=== PATIENT | male | born 1950 | race Caucasian/White ===

== ENCOUNTER 2016-06-02 19:48 | Inpatient (IN) ==
[2016-06-02 21:01] LABS: Basophils % 0.2 % (0.0-0.8); Eosinophils # 0.2 10*3/uL (0.0-0.87); Eosinophils % 1.7 % (0.00-10.9); Hemoglobin 12.2 GM/DL (14.0-18.0); Immature Granulocytes % 0.6 %; Immature Granulocytes Absolute 0.06 #; Lymphocytes # 1.9 10*3/uL (1.4-4.0); Lymphocytes % 20.4 % (21.2-54.2); Mean Corpuscular Hemoglobin 30 PG (27-34); Mean Corpuscular Volume 89.4 FL (87-102); Mean Platelet Volume 9.4 FL (9.6-12.0); Monocytes # 1.3 10*3/uL (0.11-0.8); Monocytes % 13.5 % (1.7-12.7); Neutrophils % 63.6 % (38.7-73.9); Platelet Count 183 T/CUMM (130-400); Red Blood Count 4.14 MC/CUMM (3.8-5.5); Red Cell Distribution Width 12.7 % (9.3-17.3); White Blood Count 9.5 T/CUMM (4-12)
[2016-06-02 21:30] LABS: Calcium 8.3 MG/DL (8.5-10.1); Osmolality,Calculated 278.8 MOS/KG (273-304); Potassium 3.7 MMOL/L (3.5-5.1)
--- NOTE | 2016-06-02 22:21 | Emergency Department Note ---
I, Pippa Woodson, am scribing for, and in the presence of, Leander Conteh MD 20:35. IWero Robert M, MD, personally performed the services described in this documentation, ascribed by Pippa Woodson in my presence, and it is both accurate and complete . Arrival - Arrival Chief Complaint: Extremity Problem Stated Complaint: staph infection knee,arm,groin ED Nursing Triage Note: C/O Infection in right knee/leg and right elbow. Onset on and off x 20 years worsening over the past week. Pt states that this infection comes and goes to right leg, but has never been in elbow. +redness/ swelling to RLE and right elbow Mode of Arrival: Wheelchair Limitations: No Limitations Source: Patient Time Seen by Provider: 06/02/16 20:25 - History of Present Illness HPI Narrative: Pt is a 66 y/o male that came to the ED with c/o infection in the right leg and right elbow that worsened in the last few days. Pt reports he also has bumps on his legs and groin area. Pt states he has had staff infection flare ups for the past 20 years and it normally is resolved with antibiotics. Pt states it is always a skin infection but he thinks it is affecting the bones and joints this time. Pt reports he woke up yesterday morning with his right elbow red, tender, and stiff and worsened this morning when he woke up. Pt reports the infection is normally in his right leg but never goes to his elbow like this time. Pt states he has had an US on the right knee in which no blood clots were found. He reports he also seen an technical developer and fire hose curer [place] and was told nothing could be done. Pt denies being on antibiotics at this time. He states he sent pictures of the infection to his friend's son who is a doctor and he suggested the pt needs IV antibiotics for a few days. Pt has a Hx of stroke that affected his left side but he is not paralyzed. Pt's PCP is Dr. Mccall and pt states he is a heart patient with an artificial valve. No other complaints/pain in ED at this time. Onset (ago): year(s) Consistency: intermittent Severity: moderate, severe Severity scale (1-10): 7 Quality: other Allergies/Adverse Reactions: Allergies Allergy/AdvReac Type Severity Reaction Status Date / Time morphine AdvReac ITCHING Verified 11/26/15 22:02 Home Medications: Home Medications Medication Instructions Recorded Confirmed Type Aspirin [Children's Aspirin] 81 mg PO DAILY 07/31/14 06/02/16 History Carvedilol [Coreg] 6.25 mg PO BID 07/31/14 06/02/16 History Celecoxib [Celebrex] 200 mg PO DAILY 07/31/14 06/02/16 History Furosemide Tab [Lasix Tab] 20 mg PO DAILY 07/31/14 06/02/16 History Lovastatin 40 mg PO BEDTIME 07/31/14 06/02/16 History Magnesium Chloride [Slow Mag] 64 mg PO DAILY 07/31/14 06/02/16 History Montelukast Tab [Singulair Tab] 10 mg PO BEDTIME 07/31/14 06/02/16 History Pantoprazole Sodium 20 mg PO DAILY 07/31/14 06/02/16 History Pramipexole Di-HCl [Mirapex ER] 0.375 mg PO BEDTIME 07/31/14 06/02/16 History Tamsulosin [Flomax] 0.4 mg PO DAILY 07/31/14 06/02/16 History Tizanidine HCl [Zanaflex] 4 mg PO BEDTIME 07/31/14 06/02/16 History clonazePAM [Clonazepam] 0.5 mg PO BID 07/31/14 06/02/16 History Duloxetine HCl [Cymbalta] 60 mg PO DAILY 03/11/15 06/02/16 History HYDROcodone/ACETAMIN 10-325 [[place] 1 tablet PO Q4H PRN 03/11/15 06/02/16 History 10-325] Niacin [Slo-Niacin] 500 mg PO DAILY 11/27/15 06/02/16 History Lisinopril [Lisinopril] 2.5 mg PO DAILY 03/03/16 06/02/16 History Biotin/Keratin [Biotin Plus 1 each PO DAILY 06/02/16 06/02/16 History Keratin Tablet] Magnesium Oxide [Magnesium] 400 mg PO DAILY 06/02/16 06/02/16 History Multivit-Min/FA/Lycopene/Lut 1 each PO DAILY 06/02/16 06/02/16 History [Centrum Silver Tablet] Nitroglycerin Sl Tab [Nitrostat] 0.4 mg SL Q5M PRN 06/02/16 06/02/16 History [place]-3 Fatty Acids [Fish Oil] 300 mg PO DAILY 06/02/16 06/02/16 History Warfarin Sodium 3 mg PO MOWEFRSA 06/02/16 06/02/16 History Warfarin Sodium 5 mg PO MOWEFRSA 06/02/16 06/02/16 History Warfarin [Coumadin] 5 mg PO SUTUTH 06/02/16 06/02/16 History Review of System - Review of System 12 point system: reviewed and no additional remarkable complaints except as stated - Review of System Constitutional: Absent: chills, fever Cardiovascular: Absent: chest pain Gastrointestinal: Absent: abdominal pain Musculoskeletal: Present: arm pain (right elbow pain that is red, tender, and stiff), leg pain (right leg pain). Absent: back pain, neck pain Skin: Present: rash (bumps on right leg and groin area) Neurological: Absent: headache Psychiatric: Absent: anxiety Medical,Surgical,& Family Hx - Medical History Cardio: History of: Hypertension, Pacemaker, Valvular Heart Disease (Mechanical Aortic valve) Psychological: History of: Depression, Previous Suicide Attempt (INTENTIONAL OD [address] ROA AT [place]), Psychiatric/Substance Abuse Tx, Psychiatric Problems No history of: Anxiety Disorders, ADHD, Behavior Problems, Bipolar Disorder, Schizophrenia, Violent Behavior Neurology: History of: Cerebrovascular Accident HEENT: History of: Eye Problem (NEAR SIGHTED) No history of: Ear Problem, Dental Problems, Glaucoma, Oral Cancer Respiratory: History of: Asthma, Obstructive Sleep Apnea Gastrointestinal: History of: GERD, GI Problems Musculoskeletal: History of: Back/Neck Problems (rods in back) Other: History of: Skin Problems (recurrent cellulitis of the extremities), Miscellaneous Medical Problems (Sleep Apnea) - Surgical History Cardiac Surgeries: Sugical HX of: Cardiac Catheterization (stents x 2, dr jackson), Cardiac Surgery Thoracic Surgeries: Patient denies;: Organ Transplant Abdominal Surgeries: Surgical HX of: Abdominal Surgery (COLECTOMY), Appendectomy , Colonoscopy, EGD Patient denies: Cholecystectomy, Gastric Bypass Surgery, Hernia Repair Orthopedic Surgeries: Surgical HX of;: Orthopedic Surgery (MICOSCOPIC R KNEE SURG,3 FUSED DISC,RODS IN BACK) - Family History Family History: Reports;: Family Cancer (MOM(LIVER)), Family Diabetes (COUSIN), Family Psychiatric Problems (MOM,MAT GF), Family Stroke (MOM) Denies;: Family Anesthesia Reaction, Family Heart Disease, Family Hypertension - Social History Smoking Status: Former smoker Frequency of Alcohol Use: Occasionally Type of Drug Use: None Exam Vital Signs: Vital Signs Temperature 98.1 F 06/02/16 19:50 Pulse Rate 78 06/02/16 20:00 Respiratory Rate 20 06/02/16 20:00 Blood Pressure 179/82 06/02/16 20:00 O2 Sat by Pulse Oximetry 100 06/02/16 20:00 - General General appearance: alert, in no apparent distress - Head Head exam: Present: atraumatic, normocephalic - Eye Eye exam: Present: PERRL, EOMI - ENT ENT exam: Present: mucous membranes moist. Absent: mucous membranes dry - Neck Neck exam: Present: full ROM. Absent: tenderness - Chest Chest inspection: Present: symmetric chest wall rise. Absent: tenderness - Respiratory Respiratory exam: Present: normal lung sounds bilaterally. Absent: respiratory distress - Cardiovascular Cardiovascular exam: Present: regular rate, normal rhythm, normal heart sounds - Abdominal Exam Abdominal exam: Present: soft. Absent: tenderness - Extremities Exam Extremities exam: Present: full ROM, other (right elbow is swollen and tender; scattered scabbing on the lower extremities; right medial thigh erythema and cording near the saphenous vein ) - Back Exam Back exam: Present: full ROM. Absent: tenderness - Neurological Exam Neurological exam: Present: alert, oriented X3, CN II-XII intact. Absent: motor sensory deficit - Psychiatric Psychiatric exam: Present: normal affect, normal mood - Skin Skin exam: Present: warm, dry Course - Consultations Consultation #1: Dr. Mainor Chu will evaluate and admit the patient. Time: 22:21 Results - Labs CBC & BMP: 06/02/16 20:40 06/02/16 20:40 Lab Results: I have reviewed the patients labs Labs: Lab Results WBC 9.5 T/CUMM (4-12) 06/02/16 20:40 RBC 4.14 MC/CUMM (3.8-5.5) 06/02/16 20:40 Hgb 12.2 GM/DL (14.0-18.0) L 06/02/16 20:40 Hct 37.0 VOL% (42.0-52.0) L 06/02/16 20:40 MCV 89.4 FL (87-102) 06/02/16 20:40 MCH 30 PG (27-34) 06/02/16 20:40 MCHC 33.0 GM/DL (32-36) 06/02/16 20:40 RDW 12.7 % (9.3-17.3) 06/02/16 20:40 Plt Count 183 T/CUMM (130-400) 06/02/16 20:40 MPV 9.4 FL (9.6-12.0) L 06/02/16 20:40 Neut % (Auto) 63.6 % (38.7-73.9) 06/02/16 20:40 Lymph % (Auto) 20.4 % (21.2-54.2) L 06/02/16 20:40 [place] % (Auto) 13.5 % (1.7-12.7) H 06/02/16 20:40 Eos % (Auto) 1.7 % (0.00-10.9) 06/02/16 20:40 Baso % (Auto) 0.2 % (0.0-0.8) 06/02/16 20:40 Neut # (Auto) 6.0 10*3/uL (1.4-7.4) 06/02/16 20:40 Lymph # (Auto) 1.9 10*3/uL (1.4-4.0) 06/02/16 20:40 [place] # (Auto) 1.3 10*3/uL (0.11-0.8) H 06/02/16 20:40 Eos # (Auto) 0.2 10*3/uL (0.0-0.87) 06/02/16 20:40 Baso # (Auto) 0.0 10*3/uL (0.0-0.2) 06/02/16 20:40 Immature Gran % 0.6 % 06/02/16 20:40 Nucleated RBC % 0.0 /100WBC 06/02/16 20:40 Immature Gran # 0.06 # 06/02/16 20:40 Nucleated RBCs # 0.00 10*3/uL 06/02/16 20:40 Sodium 137 MMOL/L (136-145) 06/02/16 20:40 Potassium 3.7 MMOL/L (3.5-5.1) 06/02/16 20:40 Chloride 103 MMOL/L (98-107) 06/02/16 20:40 Carbon Dioxide 26 MMOL/L (21-32) 06/02/16 20:40 Anion Gap 11.7 MMOL/L (5.0-15.0) 06/02/16 20:40 BUN 18 MG/DL (7-18) 06/02/16 20:40 Creatinine 0.90 MG/DL (0.70-1.30) 06/02/16 20:40 GFR Calculation 129 ML/MIN 06/02/16 20:40 BUN/Creatinine Ratio 20.00 RATIO (6.00-20.00) 06/02/16 20:40 Glucose 169 MG/DL (74-106) H 06/02/16 20:40 Calculated Osmolality 278.8 MOS/KG (273-304) 06/02/16 20:40 Calcium 8.3 MG/DL (8.5-10.1) L 06/02/16 20:40 Magnesium 2.0 MG/DL (1.8-2.4) 06/02/16 20:40 C-Reactive Protein 4.29 MG/DL (0-0.32) H 06/02/16 20:40 Disposition Clinical Impression: Superficial thrombophlebitis, Cellulitis of right elbow, Pacemaker Case discussed with: patient, patient's family Disposition: Disch To Home/Self Care Condition: Stable Instructions: Cellulitis (ED) Time of Disposition: 22:21
[2016-06-02] MEDS ORDERED: NITROGLYCERIN SL 0.4 MG TABLET SL PRN (23:31)
[2016-06-02] MEDS ORDERED: BISACODYL 5 MG TABLET PO PRN (23:33)
[2016-06-02] MEDS ORDERED: ACETAMINOPHEN 325 MG TABLET PO PRN (23:33)
--- NOTE | 2016-06-02 23:40 | Hospitalist History & Physical ---
Assessment and Plan (1) Cellulitis of right lower extremity Status: Acute Current Visit: Yes (2) Cellulitis of right elbow Status: Acute Current Visit: Yes (3) History of mechanical aortic valve replacement Status: Acute Current Visit: Yes (4) Chronic anticoagulation Status: Acute Assessment and plan: Plan: Admit for IV antibiotics, check blood cultures. Over the evaluation of the right elbow. Obtain plain films He has had fever at home up to 101, however none here. If he does have recurrence of fever, and/or positive blood culture may consider echo to assess his mechanical valve. Continue check PT/INR, continue anti-coagulation as appropriate Supportive care for pain Current Visit: Yes History of Present Illness Chief complaint: Right lower extremity redness and pain, right elbow swelling and pain History of present illness: Mr. 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 The redness and pain are extending to the groin over the last several days. He reports a fever "on and off," over the weekend up to 101. Additionally he woke up yesterday and stated it looked like his right elbow had a "golf ball attached to it." He describes a swelling is very tender painful and warm. The swelling has decreased markedly however he still has significant pain on palpation and restricted range of motion with flexion and extension of the elbow. He rates it a 7 out of 10 at worst, relieved with pain medication. He denies nausea and vomiting, denies chest pain, shortness of breath. His symptoms are constant and progressively worsening. 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." Home Medications Medication Instructions Recorded Confirmed Type Aspirin [Children's Aspirin] 81 mg PO DAILY 07/31/14 06/02/16 History Carvedilol [Coreg] 6.25 mg PO BID 07/31/14 06/02/16 History Celecoxib [Celebrex] 200 mg PO DAILY 07/31/14 06/02/16 History Furosemide Tab [Lasix Tab] 20 mg PO DAILY 07/31/14 06/02/16 History Lovastatin 40 mg PO BEDTIME 07/31/14 06/02/16 History Magnesium Chloride [Slow Mag] 64 mg PO DAILY 07/31/14 06/02/16 History Montelukast Tab [Singulair Tab] 10 mg PO BEDTIME 07/31/14 06/02/16 History Pantoprazole Sodium 20 mg PO DAILY 07/31/14 06/02/16 History Pramipexole Di-HCl [Mirapex ER] 0.375 mg PO BEDTIME 07/31/14 06/02/16 History Tamsulosin [Flomax] 0.4 mg PO DAILY 07/31/14 06/02/16 History Tizanidine HCl [Zanaflex] 4 mg PO BEDTIME 07/31/14 06/02/16 History clonazePAM [Clonazepam] 0.5 mg PO BID 07/31/14 06/03/16 History Duloxetine HCl [Cymbalta] 60 mg PO DAILY 03/11/15 06/02/16 History HYDROcodone/ACETAMIN 10-325 [[place] 1 tablet PO Q4H PRN 03/11/15 06/02/16 History 10-325] Niacin [Slo-Niacin] 500 mg PO DAILY 11/27/15 06/02/16 History Lisinopril [Lisinopril] 2.5 mg PO DAILY 03/03/16 06/02/16 History Biotin/Keratin [Biotin Plus 1 each PO DAILY 06/02/16 06/02/16 History Keratin Tablet] Magnesium Oxide [Magnesium] 400 mg PO DAILY 06/02/16 06/02/16 History Multivit-Min/FA/Lycopene/Lut 1 each PO DAILY 06/02/16 06/02/16 History [Centrum Silver Tablet] Nitroglycerin Sl Tab [Nitrostat] 0.4 mg SL Q5M PRN 06/02/16 06/02/16 History [place]-3 Fatty Acids [Fish Oil] 300 mg PO DAILY 06/02/16 06/02/16 History Warfarin Sodium 3 mg PO MOWEFRSA 06/02/16 06/02/16 History Warfarin Sodium 5 mg PO MOWEFRSA 06/02/16 06/02/16 History Warfarin [Coumadin] 5 mg PO SUTUTH 06/02/16 06/02/16 History Allergies Allergy/AdvReac Type Severity Reaction Status Date / Time morphine AdvReac ITCHING Verified 11/26/15 22:02 Medical,Surgical,& Family Hx - Medical History Cardio: History of: Hypertension, Pacemaker, Valvular Heart Disease (Mechanical Aortic valve) Psychological: History of: Depression, Previous Suicide Attempt (INTENTIONAL OD [address] ROA AT [place]), Psychiatric/Substance Abuse Tx, Psychiatric Problems No history of: Anxiety Disorders, ADHD, Behavior Problems, Bipolar Disorder, Schizophrenia, Violent Behavior Neurology: History of: Cerebrovascular Accident HEENT: History of: Eye Problem (NEAR SIGHTED) No history of: Ear Problem, Dental Problems, Glaucoma, Oral Cancer Respiratory: History of: Asthma, Obstructive Sleep Apnea Gastrointestinal: History of: GERD, GI Problems Musculoskeletal: History of: Back/Neck Problems (rods in back) Other: History of: Skin Problems (recurrent cellulitis of the extremities), Miscellaneous Medical Problems (Sleep Apnea) - Surgical History Cardiac Surgeries: Sugical HX of: Cardiac Catheterization (stents x 2, dr jackson), Cardiac Surgery Thoracic Surgeries: Patient denies;: Organ Transplant Abdominal Surgeries: Surgical HX of: Abdominal Surgery (COLECTOMY), Appendectomy , Colonoscopy, EGD Patient denies: Cholecystectomy, Gastric Bypass Surgery, Hernia Repair Orthopedic Surgeries: Surgical HX of;: Orthopedic Surgery (MICOSCOPIC R KNEE SURG,3 FUSED DISC,RODS IN BACK) - Family History Family History: Reports;: Family Cancer (MOM(LIVER)), Family Diabetes (COUSIN), Family Psychiatric Problems (MOM,MAT GF), Family Stroke (MOM) Denies;: Family Anesthesia Reaction, Family Heart Disease, Family Hypertension - Social History Smoking Status: Former smoker Frequency of Alcohol Use: Occasionally Type of Drug Use: None Marital Status: Unknown Functional capacity: independent ambulation Review of systems: A 12 point review of systems is negative except as specified in the HPI Exam - Constitutional Vitals: Period Temp Pulse Resp BP Sys/[place] Pulse Ox Last 24 Hr 98.1 F-98.1 F -81 18-20 118-136/- 97-100 Exam: EXAM: CONSTITUTIONAL: non toxic, NAD HEENT: NC, AT, OP benign, JL, EOMI CV: RRR no m/g/r, crisp S1 RESP: clear B/L, no w/r/r GI: abd soft, NT, ND, +bowel sounds INTEGUMENTARY: no lesions or rash EXTREMITIES: Left lower extremity with multiple excoriations in various stages of healing, right lower extremity with erythema and superficial phlebitis about the medial thigh, right upper extremity with erythema and tenderness in the elbow joint, no antecubital tenderness, + restricted range of motion with flexion and extension due to pain NEURO: no focal deficits PSYCH: Awake, alert, hyperverbal Results - Labs CBC & BMP: 06/02/16 20:40 06/02/16 20:40 Lab Results: I have reviewed the past 24 hour labs - Diagnostic Findings Procedure: X-ray: pending Quality Measures - VTE Contraindication to Pharmacological VTE Prophylaxis: Already on Theraputic Agent , No Prophylaxis Needed Contraindication to Mechanical VTE Prophylaxis: Local Inflammation
[2016-06-02] MEDS ORDERED: SODIUM CHLORIDE 0.9% 1,000 ML IV SCH (23:45)
[2016-06-03 01:15] LABS: INR 3.2
[2016-06-03 01:19] LABS: PT Patient Result 36.6 SECS
[2016-06-03] MEDS: WARFARIN 5 MG TABLET PO SCH ×2 (01:34→23:24)
[2016-06-03] MEDS: WARFARIN 3 MG TABLET PO SCH (01:37)
[2016-06-03] MEDS: CEFTAROLINE 600 MG in SODIUM CHLORIDE 0.9% 100 ML IV SCH ×3 (01:39→13:43)
[2016-06-03 04:48] LABS: Basophils % 0.3 % (0.0-0.8); Eosinophils # 0.2 10*3/uL (0.0-0.87); Eosinophils % 2.3 % (0.00-10.9); Hematocrit 36.8 VOL% (42.0-52.0); Hemoglobin 12.3 GM/DL (14.0-18.0); Immature Granulocytes Absolute 0.09 #; Lymphocytes # 1.7 10*3/uL (1.4-4.0); Mean Corpuscular HGB Conc 33.4 GM/DL (32-36); Mean Corpuscular Hemoglobin 30 PG (27-34); Mean Corpuscular Volume 89.3 FL (87-102); Monocytes # 1.2 10*3/uL (0.11-0.8); Monocytes % 13.1 % (1.7-12.7); Neutrophils # 5.7 10*3/uL (1.4-7.4); Neutrophils % 64.3 % (38.7-73.9); Platelet Count 181 T/CUMM (130-400); Red Blood Count 4.12 MC/CUMM (3.8-5.5); Red Cell Distribution Width 12.6 % (9.3-17.3); White Blood Count 8.8 T/CUMM (4-12)
[2016-06-03 04:59] LABS: INR 3.2
[2016-06-03 05:04] LABS: PT Patient Result 36.7 SECS
--- NOTE | 2016-06-03 07:08 | XRay Report ---
Right elbow, 3 views History right elbow pain and swelling There is a moderate proximal ulnar enthesophyte with mild overlying soft tissue swelling No acute fracture or periosteal reaction is seen No evidence of elbow joint effusion is seen. Impression: Posterior soft tissue swelling without acute fracture seen PROCEDURE INTERPRETED AT [facility] DEPARTMENT OF RADIOLOG[facility] Final Report Signed by: Dr. Taisha Horowitz
[2016-06-03] MEDS: HYDROmorphone 2 MG/1 ML VIAL IV PRN ×3 (08:00→22:29)
[2016-06-03] MEDS ORDERED: BIOTIN PO SCH (09:00)
[2016-06-03] MEDS ORDERED: KERATIN PO SCH (09:00)
[2016-06-03] MEDS: OMEGA 3 ACID ETHYL ESTERS 1 GM CAPSULE PO SCH (09:21)
[2016-06-03] MEDS: MAGNESIUM CHLORIDE 64 MG TABLET PO SCH (09:22)
[2016-06-03] MEDS: MAGNESIUM OXIDE 400 MG TABLET PO SCH (09:22)
[2016-06-03] MEDS: NIACIN 500 MG TABLET PO SCH (09:22)
[2016-06-03] MEDS: DULoxetine 30 MG CAPSULE PO SCH (09:23)
[2016-06-03] MEDS: MULTIVITAMIN (CENTRUM) TABLET PO SCH (09:24)
[2016-06-03] MEDS: FUROSEMIDE 20 MG TABLET PO SCH (09:24)
[2016-06-03] MEDS: ASPIRIN CHEW 81 MG TABLET PO SCH (09:24)
[2016-06-03] MEDS: PANTOPRAZOLE 20 MG TABLET PO SCH (09:24)
[2016-06-03] MEDS: LISINOPRIL 5 MG TABLET PO SCH (09:24)
[2016-06-03] MEDS: TAMSULOSIN 0.4 MG CAPSULE PO SCH (09:24)
[2016-06-03] MEDS: CARVEDILOL 6.25 MG TABLET PO SCH ×2 (09:24→21:56)
[2016-06-03] MEDS: clonazePAM 0.5 MG TABLET PO SCH ×2 (09:25→21:56)
[2016-06-03] MEDS ORDERED: LIDOCAINE 1% 20 ML VIAL MISC INJ ONE (11:09)
--- NOTE | 2016-06-03 11:31 | Orthopedic Consult Note ---
History of Present Illness Chief complaint: Right elbow pain History of present illness: Mr. Donovan is a 66 year old male with a recent history of redness and swelling in the right leg and right elbow. He states that it began "a couple days ago". The elbow was quite swollen and extremely sore, he states that it looked like a "golf ball" was attached to the elbow. He was admitted and started on IV antibiotics, he states since that time the pain and swelling have subsided considerably. He states that he does have a history of staph infections. Home Medications Medication Instructions Recorded Confirmed Type Aspirin [Children's Aspirin] 81 mg PO DAILY 07/31/14 06/03/16 History Carvedilol [Coreg] 6.25 mg PO BID 07/31/14 06/03/16 History Celecoxib [Celebrex] 200 mg PO DAILY 07/31/14 06/03/16 History Furosemide Tab [Lasix Tab] 20 mg PO DAILY 07/31/14 06/03/16 History Lovastatin 40 mg PO BEDTIME 07/31/14 06/03/16 History Magnesium Chloride [Slow Mag] 64 mg PO DAILY 07/31/14 06/03/16 History Montelukast Tab [Singulair Tab] 10 mg PO BEDTIME 07/31/14 06/03/16 History Pantoprazole Sodium 20 mg PO DAILY 07/31/14 06/03/16 History Pramipexole Di-HCl [Mirapex ER] 0.375 mg PO BEDTIME 07/31/14 06/03/16 History Tamsulosin [Flomax] 0.4 mg PO DAILY 07/31/14 06/03/16 History Tizanidine HCl [Zanaflex] 4 mg PO BEDTIME 07/31/14 06/03/16 History clonazePAM [Clonazepam] 0.5 mg PO BID 07/31/14 06/03/16 History Duloxetine HCl [Cymbalta] 60 mg PO DAILY 03/11/15 06/03/16 History HYDROcodone/ACETAMIN 10-325 [[place] 1 tablet PO Q4H PRN 03/11/15 06/03/16 History 10-325] Niacin [Slo-Niacin] 500 mg PO DAILY 11/27/15 06/03/16 History Lisinopril [Lisinopril] 2.5 mg PO DAILY 03/03/16 06/03/16 History Biotin/Keratin [Biotin Plus 1 each PO DAILY 06/02/16 06/03/16 History Keratin Tablet] Magnesium Oxide [Magnesium] 400 mg PO DAILY 06/02/16 06/03/16 History Multivit-Min/FA/Lycopene/Lut 1 each PO DAILY 06/02/16 06/03/16 History [Centrum Silver Tablet] Nitroglycerin Sl Tab [Nitrostat] 0.4 mg SL Q5M PRN 06/02/16 06/03/16 History [place]-3 Fatty Acids [Fish Oil] 300 mg PO DAILY 06/02/16 06/03/16 History Warfarin Sodium 3 mg PO MOWEFRSA 06/02/16 06/03/16 History Warfarin Sodium 5 mg PO MOWEFRSA 06/02/16 06/03/16 History Warfarin [Coumadin] 5 mg PO SUTUTH 06/02/16 06/03/16 History Allergies Allergy/AdvReac Type Severity Reaction Status Date / Time morphine AdvReac ITCHING Verified 11/26/15 22:02 - Constitutional Constitutional: Present: fever(s) Medical,Surgical,& Family Hx - Medical History Cardio: History of: Cardiac Dysrhythmia (Pacemaker), Hypertension, Pacemaker, Valvular Heart Disease (Mechanical Aortic valve) Psychological: History of: Depression, Previous Suicide Attempt (INTENTIONAL OD [address] ROA AT [place]), Psychiatric/Substance Abuse Tx, Psychiatric Problems No history of: Anxiety Disorders, ADHD, Behavior Problems, Bipolar Disorder, Schizophrenia, Violent Behavior Neurology: History of: Cerebrovascular Accident, Multiple Sclerosis HEENT: History of: Eye Problem (NEAR SIGHTED) No history of: Ear Problem, Dental Problems, Glaucoma, Oral Cancer Respiratory: History of: Asthma, Obstructive Sleep Apnea Gastrointestinal: History of: GERD, GI Problems Musculoskeletal: History of: Back/Neck Problems (rods in back), Herniated Disk Other: History of: Skin Problems (recurrent cellulitis of the extremities), Miscellaneous Medical Problems (Sleep Apnea) - Surgical History Cardiac Surgeries: Sugical HX of: Cardiac Catheterization (stents x 2, dr jackson), Cardiac Surgery Thoracic Surgeries: Patient denies;: Organ Transplant Abdominal Surgeries: Surgical HX of: Abdominal Surgery (COLECTOMY), Appendectomy , Colonoscopy, EGD Patient denies: Cholecystectomy, Gastric Bypass Surgery, Hernia Repair Reproductive Surgeries: Surgical HX of;: Vasectomy Patient denies;: Genitourinary Surgery Orthopedic Surgeries: Surgical HX of;: Orthopedic Surgery (MICOSCOPIC R KNEE SURG,3 FUSED DISC,RODS IN BACK) - Family History Family History: Reports;: Family Cancer (MOM(LIVER)), Family Diabetes (COUSIN), Family Psychiatric Problems (MOM,MAT GF), Family Stroke (MOM) Denies;: Family Anesthesia Reaction, Family Heart Disease, Family Hypertension - Social History Smoking Status: Former smoker Frequency of Alcohol Use: Occasionally Type of Drug Use: None Exam - Constitutional Vitals: Period Temp Pulse Resp BP Sys/[place] Pulse Ox Last 24 Hr 96.8 F-97.8 F 64-91 18-20 122-155/67-81 97-100 Exam: Right upper extremity: Very mild swelling and erythema in the right upper extremity. No skin lesions are noted. No areas of fluctuance are noted. He is exquisitely tender along his olecranon bursa, but there is minimal fluid noted there. No obvious signs of a significant olecranon bursitis at this point. Results - Labs CBC & BMP: 06/03/16 03:55 06/02/16 20:40 Assessment and Plan (1) Cellulitis of right elbow Status: Acute Assessment and plan: At this point it appears that the patient mostly has a cellulitis of the right upper extremity. If he did have a significant olecranon bursitis, it has responded remarkably well to IV antibiotics. We attempted to aspirate what little fluid was in the bursa, but got less than 1 cc of bloody fluid. We sent this to lab for evaluation. Recommend continue antibiotics We will follow-up exam and cultures tomorrow Procedure: under aseptic conditions, area over the right olecranon bursa was anesthetized 1 % lidocaine. Less than 1 cc of bloody fluid was then aspirated. Patient tolerated the procedure and there were no immediate complications. Current Visit: Yes Specialty Discharge - Follow Up or Referrals
--- NOTE | 2016-06-03 13:20 | Hospitalist Progress Note ---
Assessment and Plan (1) Cellulitis Status: Acute Current Visit: No (2) Cellulitis of right elbow Status: Acute Current Visit: Yes (3) Cellulitis of right lower extremity Status: Acute Current Visit: Yes (4) History of mechanical aortic valve replacement Status: Acute Current Visit: Yes (5) Chronic anticoagulation Status: Acute Current Visit: Yes Hospitalist: Subjective Interval history: Patient complaining of mostly right elbow pain. Reports that his cellulitis is unchanged from yesterday. Orthopedics able to aspirate a small amount of fluid from his elbow. F/u culture. Continue teflor. Exam - Constitutional Vitals: Period Temp Pulse Resp BP Sys/[place] Pulse Ox Last 24 Hr 96.8 F-97.8 F 64-91 18-20 122-155/67-85 95-100 General appearance: over weight - Head Head exam: Present: normocephalic, atraumatic - Eye Eye exam: Present: EOMI Pupils: Present: JL - ENT ENT exam: Present: normal exam - Neck Neck exam: Present: normal inspection - Respiratory Respiratory exam: Present: clear to auscultation bilaterally. Absent: rhonchi, wheezes - Cardiovascular Cardiovascular exam: Present: regular rate and rhythm - GI/Abdominal GI/Abdominal exam: Present: normal bowel sounds, soft - Extremities Exam Extremities exam: Present: normal inspection - Back Exam Back exam: Present: normal inspection - Neurological Exam Neurological exam: Present: alert, oriented X3 - Psychiatric Psychiatric exam: Present: normal affect, normal mood - Skin Skin exam: Present: warm, intact Results - Labs CBC & BMP: 06/03/16 03:55 06/02/16 20:40 Quality Measures - VTE Contraindication to Pharmacological VTE Prophylaxis: Already on Theraputic Agent , No Prophylaxis Needed Contraindication to Mechanical VTE Prophylaxis: Local Inflammation Specialty Discharge - Follow Up or Referrals
[2016-06-03] MEDS ORDERED: PRAMIPEXOLE DI HCL 0.375 MG PO SCH (21:00)
[2016-06-03] MEDS: tiZANidine 4 MG TABLET PO SCH (21:56)
[2016-06-03] MEDS: LOVASTATIN 20 MG TABLET PO SCH (21:56)
[2016-06-03] MEDS: MONTELUKAST 10 MG TABLET PO SCH (21:56)
[2016-06-04] MEDS: CEFTAROLINE 600 MG in SODIUM CHLORIDE 0.9% 100 ML IV SCH ×2 (01:17→13:31)
[2016-06-04] MEDS: HYDROmorphone 2 MG/1 ML VIAL IV PRN ×3 (03:42→13:30)
[2016-06-04 03:58] LABS: Basophils % 0.2 % (0.0-0.8); Eosinophils # 0.1 10*3/uL (0.0-0.87); Eosinophils % 0.9 % (0.00-10.9); Hematocrit 36.1 VOL% (42.0-52.0); Hemoglobin 11.4 GM/DL (14.0-18.0); Immature Granulocytes % 0.7 %; Immature Granulocytes Absolute 0.08 #; Lymphocytes # 1.5 10*3/uL (1.4-4.0); Lymphocytes % 12.6 % (21.2-54.2); Mean Corpuscular HGB Conc 31.6 GM/DL (32-36); Mean Corpuscular Hemoglobin 29 PG (27-34); Mean Corpuscular Volume 91.9 FL (87-102); Mean Platelet Volume 10.3 FL (9.6-12.0); Monocytes # 1.7 10*3/uL (0.11-0.8); Monocytes % 14.4 % (1.7-12.7); Neutrophils # 8.2 10*3/uL (1.4-7.4); Neutrophils % 71.2 % (38.7-73.9); Platelet Count 193 T/CUMM (130-400); Red Blood Count 3.93 MC/CUMM (3.8-5.5); Red Cell Distribution Width 12.7 % (9.3-17.3); White Blood Count 11.5 T/CUMM (4-12)
[2016-06-04 04:30] LABS: Calcium 8.4 MG/DL (8.5-10.1); Osmolality,Calculated 277.7 MOS/KG (273-304); Potassium 4.3 MMOL/L (3.5-5.1)
[2016-06-04] MEDS: ONDANSETRON 4 MG/2 ML VIAL IV PRN ×2 (08:31→13:25)
[2016-06-04] MEDS: MAGNESIUM OXIDE 400 MG TABLET PO SCH (08:39)
[2016-06-04] MEDS: DULoxetine 30 MG CAPSULE PO SCH (08:39)
[2016-06-04] MEDS: MULTIVITAMIN (CENTRUM) TABLET PO SCH (08:39)
[2016-06-04] MEDS: NIACIN 500 MG TABLET PO SCH (08:39)
[2016-06-04] MEDS: OMEGA 3 ACID ETHYL ESTERS 1 GM CAPSULE PO SCH (08:39)
[2016-06-04] MEDS: TAMSULOSIN 0.4 MG CAPSULE PO SCH (08:39)
[2016-06-04] MEDS: CARVEDILOL 6.25 MG TABLET PO SCH ×2 (08:40→21:10)
[2016-06-04] MEDS: clonazePAM 0.5 MG TABLET PO SCH ×2 (08:40→21:10)
[2016-06-04] MEDS: ASPIRIN CHEW 81 MG TABLET PO SCH (08:40)
[2016-06-04] MEDS: FUROSEMIDE 20 MG TABLET PO SCH (08:40)
[2016-06-04] MEDS: MAGNESIUM CHLORIDE 64 MG TABLET PO SCH (08:43)
[2016-06-04] MEDS: LISINOPRIL 5 MG TABLET PO SCH (08:43)
[2016-06-04] MEDS: PANTOPRAZOLE 20 MG TABLET PO SCH (08:44)
--- NOTE | 2016-06-04 09:44 | Orthopedic Progress Note ---
Assessment and Plan (1) Cellulitis of right elbow Status: Acute Assessment and plan: Clinically, he has no abscess or fluid collection noted in the olecranon bursa. I recommended continuing IV antibiotics and transitioning to oral antibiotics for discharge home. We will not plan for any surgical intervention unless his septic olecranon bursitis recurs. We will plan for follow-up in clinic in 10-14 days Current Visit: Yes Orthopedics - Subjective Interval history: Patient states his elbow feels "fine" this morning. Most of his complaints are centered around his lower back where he has had issues for years. On exam, he has no fluctuance noted in the olecranon bursa. Erythema and edema are much improved. Cultures from the bursa. The gram-positive cocci. Exam - Constitutional Vitals: Period Temp Pulse Resp BP Sys/[place] Pulse Ox Last 24 Hr 97.6 F-98.2 F 75-90 16-20 130-157/72-91 95-98 Results - Labs CBC & BMP: 06/04/16 02:33 06/04/16 02:33 Quality Measures - VTE Contraindication to Pharmacological VTE Prophylaxis: Already on Theraputic Agent , No Prophylaxis Needed Contraindication to Mechanical VTE Prophylaxis: Local Inflammation Specialty Discharge - Follow Up or Referrals Follow up with: Rishi Adkins MD [Physician] - 2 Weeks - Speciality Discharge Instructions Orthopedic Instructions: Call the clinic with any questions or concerns prior to follow-up. This includes any increase in redness, erythema, or swelling along the olecranon bursa.
[2016-06-04] MEDS ORDERED: tiZANidine 4 MG TABLET PO PRN (15:11)
--- NOTE | 2016-06-04 15:14 | Hospitalist Progress Note ---
Assessment and Plan (1) Cellulitis Status: Acute Current Visit: No (2) Cellulitis of right elbow Status: Acute Current Visit: Yes (3) Cellulitis of right lower extremity Status: Acute Current Visit: Yes (4) History of mechanical aortic valve replacement Status: Acute Current Visit: Yes (5) Chronic anticoagulation Status: Acute Current Visit: Yes Hospitalist: Subjective Interval history: Right knee and right elbow pain much better today. Now complaining of back pain , similar to use chronic back pain but worse. Takes zanaflex nightly, will change to tid prn. Elbow joint culture growing gram positive cocci. F/u cultures. Continue IV abx for now. Exam - Constitutional Vitals: Period Temp Pulse Resp BP Sys/[place] Pulse Ox Last 24 Hr 97.7 F-98.2 F 75-90 16-20 130-157/72-91 97-98 General appearance: over weight - Head Head exam: Present: normocephalic, atraumatic - ENT ENT exam: Present: normal exam - Neck Neck exam: Present: normal inspection - Respiratory Respiratory exam: Present: clear to auscultation bilaterally. Absent: rhonchi, wheezes - Cardiovascular Cardiovascular exam: Present: regular rate and rhythm - GI/Abdominal GI/Abdominal exam: Present: normal bowel sounds, soft. Absent: tenderness, rebound - Extremities Exam Extremities exam: Present: other (RLE and RUE with improvement in erythema and warmth) - Back Exam Back exam: Present: normal inspection - Neurological Exam Neurological exam: Present: alert, oriented X3 - Psychiatric Psychiatric exam: Present: normal affect, normal mood - Skin Skin exam: Present: warm, intact Results - Labs CBC & BMP: 06/04/16 02:33 06/04/16 02:33 Quality Measures - VTE Contraindication to Pharmacological VTE Prophylaxis: Already on Theraputic Agent , No Prophylaxis Needed Contraindication to Mechanical VTE Prophylaxis: Local Inflammation Specialty Discharge - Follow Up or Referrals Follow up with: Rishi Adkins MD [Physician] - 2 Weeks
[2016-06-04] MEDS: LOVASTATIN 20 MG TABLET PO SCH (21:10)
[2016-06-04] MEDS: MONTELUKAST 10 MG TABLET PO SCH (21:10)
[2016-06-04] MEDS: tiZANidine 4 MG TABLET PO SCH (21:10)
[2016-06-04] MEDS: ACETAMINOPHEN 500 MG TABLET PO SCH (22:41)
[2016-06-05] MEDS: WARFARIN 5 MG TABLET PO SCH ×2 (00:16→23:36)
[2016-06-05] MEDS: WARFARIN 3 MG TABLET PO SCH ×2 (00:17→23:36)
[2016-06-05] MEDS: CEFTAROLINE 600 MG in SODIUM CHLORIDE 0.9% 100 ML IV SCH ×2 (00:17→13:48)
[2016-06-05 04:26] LABS: Basophils % 0.1 % (0.0-0.8); Eosinophils # 0.1 10*3/uL (0.0-0.87); Eosinophils % 1.6 % (0.00-10.9); Hematocrit 31.6 VOL% (42.0-52.0); Hemoglobin 10.2 GM/DL (14.0-18.0); Immature Granulocytes % 0.6 %; Immature Granulocytes Absolute 0.05 #; Lymphocytes # 1.2 10*3/uL (1.4-4.0); Lymphocytes % 14.8 % (21.2-54.2); Mean Corpuscular HGB Conc 32.3 GM/DL (32-36); Mean Corpuscular Hemoglobin 29 PG (27-34); Mean Corpuscular Volume 91.1 FL (87-102); Mean Platelet Volume 10.1 FL (9.6-12.0); Monocytes # 1.1 10*3/uL (0.11-0.8); Monocytes % 13.6 % (1.7-12.7); Neutrophils # 5.5 10*3/uL (1.4-7.4); Neutrophils % 69.3 % (38.7-73.9); Platelet Count 148 T/CUMM (130-400); Red Blood Count 3.47 MC/CUMM (3.8-5.5); Red Cell Distribution Width 12.8 % (9.3-17.3); White Blood Count 7.9 T/CUMM (4-12)
[2016-06-05] MEDS: ACETAMINOPHEN 500 MG TABLET PO SCH ×3 (06:46→21:19)
[2016-06-05] MEDS: LISINOPRIL 5 MG TABLET PO SCH (09:31)
[2016-06-05] MEDS: clonazePAM 0.5 MG TABLET PO SCH ×2 (09:31→21:20)
[2016-06-05] MEDS: ASPIRIN CHEW 81 MG TABLET PO SCH (09:31)
[2016-06-05] MEDS: MAGNESIUM CHLORIDE 64 MG TABLET PO SCH (09:31)
[2016-06-05] MEDS: NIACIN 500 MG TABLET PO SCH (09:31)
[2016-06-05] MEDS: MULTIVITAMIN (CENTRUM) TABLET PO SCH (09:32)
[2016-06-05] MEDS: OMEGA 3 ACID ETHYL ESTERS 1 GM CAPSULE PO SCH (09:32)
[2016-06-05] MEDS: FUROSEMIDE 20 MG TABLET PO SCH (09:32)
[2016-06-05] MEDS: PANTOPRAZOLE 20 MG TABLET PO SCH (09:32)
[2016-06-05] MEDS: CARVEDILOL 6.25 MG TABLET PO SCH ×2 (09:32→21:20)
[2016-06-05] MEDS: DULoxetine 30 MG CAPSULE PO SCH (09:32)
[2016-06-05] MEDS: TAMSULOSIN 0.4 MG CAPSULE PO SCH (09:32)
[2016-06-05] MEDS: MAGNESIUM OXIDE 400 MG TABLET PO SCH (09:32)
--- NOTE | 2016-06-05 09:40 | Orthopedic Progress Note ---
Assessment and Plan (1) Cellulitis of right elbow Status: Acute Assessment and plan: Because the erythema and swelling have resolved, recommend continuing with conservative treatment for his right elbow. Continue antibiotics as per medicine No further orthopedic surgical intervention needed. 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 Discussed probability of colonization with staph. He stated that he has seen infectious disease in the past and I recommend following up with his infectious disease doctor. Current Visit: Yes (3) Back pain Status: Acute Assessment and plan: I encouraged him to follow-up with a spine surgeon for reevaluation of his back. He stated that he will schedule an appointment outpatient. Current Visit: Yes Orthopedics - Subjective Interval history: Patient seen and examined on the floor. States that he now has full range of motion to his right elbow and no pain. Is very pleased that the swelling and infection has resolved. States that his back pain may be getting better as well which he believes could be in part to the antibiotics. States that he had back surgery by a spine surgeon in [facility], but has not seen a surgeon in quite some time Exam - Constitutional Vitals: Period Temp Pulse Resp BP Sys/[place] Pulse Ox Last 24 Hr 97.0 F-99.4 F 60-87 16-20 96-144/50-95 90-98 General appearance: over weight - Head Head exam: Present: normal inspection, normocephalic, atraumatic - Eye Eye exam: Present: EOMI Pupils: Present: LJ - ENT ENT exam: Present: normal exam - Neck Neck exam: Present: normal inspection - Respiratory Respiratory exam: Absent: accessory muscle use, wheezes - Cardiovascular Cardiovascular exam: Present: regular rate and rhythm - GI/Abdominal GI/Abdominal exam: Absent: distended, firm - Extremities Exam Extremities exam: Present: normal inspection (Right elbow: Aspiration site is clean, dry, intact. There is no swelling, erythema. Nontender to palpation. Full range of motion. Compartments soft. Sensation is intact. Cap refill brisk. Radial and ulnar pulse 2+.) - Neurological Exam Neurological exam: Present: alert, oriented X3, CN II-XII intact. Absent: motor sensory deficit - Psychiatric Psychiatric exam: Present: normal affect, normal mood Results - Labs CBC & BMP: 06/05/16 03:49 06/04/16 02:33 Lab Results: I have reviewed the past 24 hour labs Labs: Right elbow olecranon bursa aspirate: Light growth of gram-positive cocci. Sensitivities still pending Quality Measures - VTE Contraindication to Pharmacological VTE Prophylaxis: Already on Theraputic Agent , No Prophylaxis Needed Contraindication to Mechanical VTE Prophylaxis: Local Inflammation Specialty Discharge - Follow Up or Referrals Follow up with: Rishi Adkins MD [Physician] - 2 Weeks
--- NOTE | 2016-06-05 12:49 | Hospitalist Progress Note ---
Assessment and Plan (1) Coronary artery disease Status: Chronic Current Visit: No (2) H/O aortic valve replacement Status: Chronic Current Visit: No (3) Cellulitis of right elbow Status: Acute Assessment and plan: This continues to improve. Afebrile's. Continue with Teflaro Current Visit: Yes (4) Cellulitis of right lower extremity Status: Acute Current Visit: Yes (5) Back pain Status: Chronic Current Visit: Yes Qualifiers: Back pain location: low back pain Hospitalist: Subjective Interval history: Patient sitting up on side of bed resting comfortably. His main complaint is back pain at this time. Had increase in his muscle relaxant yesterday that is showing some improvement. No fevers or chills. He is continue with antibiotic therapy for the cellulitis. The right upper extremity and the right lower extremity show signs of improvement with redness and swelling appreciated. His family members at this bedside and request a stool softener for patient. Exam - Constitutional Vitals: Period Temp Pulse Resp BP Sys/[place] Pulse Ox Last 24 Hr 97.0 F-99.4 F 60-87 16-20 96-144/50-95 90-98 General appearance: normal weight - Head Head exam: Present: normal inspection - Eye Eye exam: Present: EOMI - ENT ENT exam: Present: normal exam - Neck Neck exam: Present: normal inspection - Respiratory Respiratory exam: Present: clear to auscultation bilaterally - Cardiovascular Cardiovascular exam: Present: regular rate and rhythm - GI/Abdominal GI/Abdominal exam: Present: normal bowel sounds - Extremities Exam Extremities exam: Present: normal inspection - Neurological Exam Neurological exam: Present: alert, oriented X3 - Psychiatric Psychiatric exam: Present: normal affect, normal mood - Skin Skin exam: Present: normal color Results - Labs CBC & BMP: 06/05/16 03:49 06/04/16 02:33 Quality Measures - VTE Contraindication to Pharmacological VTE Prophylaxis: Already on Theraputic Agent , No Prophylaxis Needed Contraindication to Mechanical VTE Prophylaxis: Local Inflammation Specialty Discharge - Follow Up or Referrals Follow up with: Rishi Adkins MD [Physician] - 2 Weeks
[2016-06-05] MEDS: ONDANSETRON 4 MG/2 ML VIAL IV PRN (13:41)
[2016-06-05] MEDS: HYDROmorphone 2 MG/1 ML VIAL IV PRN ×2 (13:46→21:20)
[2016-06-05] MEDS: MONTELUKAST 10 MG TABLET PO SCH (21:20)
[2016-06-05] MEDS: LOVASTATIN 20 MG TABLET PO SCH (21:20)
[2016-06-05] MEDS: DOCUSATE SODIUM 100 MG CAPSULE PO SCH (21:20)
[2016-06-05] MEDS: tiZANidine 4 MG TABLET PO SCH (21:20)
[2016-06-05] MEDS ORDERED: WARFARIN 2 MG TABLET ONE (21:28)
[2016-06-06] MEDS: CEFTAROLINE 600 MG in SODIUM CHLORIDE 0.9% 100 ML IV SCH ×2 (00:53→13:57)
[2016-06-06] MEDS: HYDROmorphone 2 MG/1 ML VIAL IV PRN ×2 (04:49→13:56)
[2016-06-06] MEDS: ACETAMINOPHEN 500 MG TABLET PO SCH ×3 (06:05→21:20)
[2016-06-06] MEDS: FUROSEMIDE 20 MG TABLET PO SCH (08:56)
[2016-06-06] MEDS: CARVEDILOL 6.25 MG TABLET PO SCH ×2 (08:56→21:21)
[2016-06-06] MEDS: MULTIVITAMIN (CENTRUM) TABLET PO SCH (08:56)
[2016-06-06] MEDS: LISINOPRIL 5 MG TABLET PO SCH (08:57)
[2016-06-06] MEDS: NIACIN 500 MG TABLET PO SCH (08:57)
[2016-06-06] MEDS: PANTOPRAZOLE 20 MG TABLET PO SCH (08:57)
[2016-06-06] MEDS: MAGNESIUM CHLORIDE 64 MG TABLET PO SCH (08:57)
[2016-06-06] MEDS: DULoxetine 30 MG CAPSULE PO SCH (08:57)
[2016-06-06] MEDS: ASPIRIN CHEW 81 MG TABLET PO SCH (08:57)
[2016-06-06] MEDS: MAGNESIUM OXIDE 400 MG TABLET PO SCH (08:57)
[2016-06-06] MEDS: DOCUSATE SODIUM 100 MG CAPSULE PO SCH ×2 (08:58→21:20)
[2016-06-06] MEDS: TAMSULOSIN 0.4 MG CAPSULE PO SCH (08:58)
[2016-06-06] MEDS: OMEGA 3 ACID ETHYL ESTERS 1 GM CAPSULE PO SCH (08:58)
[2016-06-06] MEDS: clonazePAM 0.5 MG TABLET PO SCH ×2 (08:58→21:21)
--- NOTE | 2016-06-06 10:23 | Hospitalist Progress Note ---
Assessment and Plan (1) Coronary artery disease Status: Chronic Current Visit: No (2) H/O aortic valve replacement Status: Chronic Current Visit: No (3) Cellulitis of right elbow Status: Acute Assessment and plan: This continues to improve. Afebrile's. Continue with Teflaro Check CBC in a.m. Current Visit: Yes (4) Cellulitis of right lower extremity Status: Acute Current Visit: Yes (5) Back pain Status: Chronic Current Visit: Yes Qualifiers: Back pain location: low back pain Hospitalist: Subjective Interval history: The patient is resting comfortably. Did have some discomfort in his back last night also complains of some leg pain as well. No fevers or chills. Patient is continue his antibiotics due to his evidence of cellulitis. His last WBC count was in normal range. Exam - Constitutional Vitals: Period Temp Pulse Resp BP Sys/[place] Pulse Ox Last 24 Hr 96.7 F-98.5 F 60-71 16-20 102-128/49-78 93-96 General appearance: normal weight - Head Head exam: Present: normal inspection - Eye Eye exam: Present: EOMI Pupils: Present: JL - Respiratory Respiratory exam: Present: clear to auscultation bilaterally - Cardiovascular Cardiovascular exam: Present: regular rate and rhythm - GI/Abdominal GI/Abdominal exam: Present: normal bowel sounds - Extremities Exam Extremities exam: Present: normal inspection - Neurological Exam Neurological exam: Present: alert, oriented X3 - Psychiatric Psychiatric exam: Present: normal affect, normal mood Results - Labs CBC & BMP: 06/05/16 03:49 06/04/16 02:33 Quality Measures - VTE Contraindication to Pharmacological VTE Prophylaxis: Already on Theraputic Agent , No Prophylaxis Needed Contraindication to Mechanical VTE Prophylaxis: Local Inflammation Specialty Discharge - Follow Up or Referrals Follow up with: Rishi Adkins MD [Physician] - 2 Weeks
[2016-06-06] MEDS: ONDANSETRON 4 MG/2 ML VIAL IV PRN (13:52)
[2016-06-06] MEDS: tiZANidine 4 MG TABLET PO SCH (21:20)
[2016-06-06] MEDS: MONTELUKAST 10 MG TABLET PO SCH (21:20)
[2016-06-06] MEDS: LOVASTATIN 20 MG TABLET PO SCH (21:20)
[2016-06-07] MEDS: WARFARIN 5 MG TABLET PO SCH (00:12)
[2016-06-07] MEDS: CEFTAROLINE 600 MG in SODIUM CHLORIDE 0.9% 100 ML IV SCH ×2 (00:14→14:17)
[2016-06-07 04:47] LABS: Basophils % 0.3 % (0.0-0.8); Eosinophils # 0.2 10*3/uL (0.0-0.87); Eosinophils % 3.6 % (0.00-10.9); Hematocrit 32.4 VOL% (42.0-52.0); Hemoglobin 10.4 GM/DL (14.0-18.0); Immature Granulocytes % 0.6 %; Immature Granulocytes Absolute 0.04 #; Lymphocytes # 1.2 10*3/uL (1.4-4.0); Lymphocytes % 17.3 % (21.2-54.2); Mean Corpuscular HGB Conc 32.1 GM/DL (32-36); Mean Corpuscular Hemoglobin 30 PG (27-34); Mean Corpuscular Volume 91.8 FL (87-102); Mean Platelet Volume 10.6 FL (9.6-12.0); Monocytes # 0.6 10*3/uL (0.11-0.8); Monocytes % 8.2 % (1.7-12.7); Neutrophils # 4.7 10*3/uL (1.4-7.4); Platelet Count 143 T/CUMM (130-400); Red Blood Count 3.53 MC/CUMM (3.8-5.5); Red Cell Distribution Width 12.5 % (9.3-17.3); White Blood Count 6.7 T/CUMM (4-12)
[2016-06-07] MEDS: ACETAMINOPHEN 500 MG TABLET PO SCH ×2 (05:48→14:19)
[2016-06-07 08:16] VITALS: BP 138/74
--- NOTE | 2016-06-07 09:06 | Orthopedic Progress Note ---
Assessment and Plan (1) Cellulitis of right elbow Status: Acute Assessment and plan: Okay to discharge home from orthopedic standpoint No orthopedic follow-up necessary unless olecranon bursitis recurs Recommend follow with Dr. Hanna for continued back pain Current Visit: Yes Orthopedics - Subjective Interval history: Patient states he is much improved today. His knee, leg, and back pain have almost completely resolved. Examination right arm shows no swelling along the olecranon bursa is minimally tender got good range of motion. Exam - Constitutional Vitals: Period Temp Pulse Resp BP Sys/[place] Pulse Ox Last 24 Hr 96.9 F-98.6 F 60-71 16-20 123-149/61-74 94-97 Results - Labs CBC & BMP: 06/07/16 03:58 06/04/16 02:33 Quality Measures - VTE Contraindication to Pharmacological VTE Prophylaxis: Already on Theraputic Agent , No Prophylaxis Needed Contraindication to Mechanical VTE Prophylaxis: Local Inflammation Specialty Discharge - Follow Up or Referrals Follow up with: Rishi Adkins MD [Physician] - 2 Weeks
[2016-06-07] MEDS: LISINOPRIL 5 MG TABLET PO SCH (09:39)
[2016-06-07] MEDS: MULTIVITAMIN (CENTRUM) TABLET PO SCH (09:40)
[2016-06-07] MEDS: DOCUSATE SODIUM 100 MG CAPSULE PO SCH (09:40)
[2016-06-07] MEDS: MAGNESIUM CHLORIDE 64 MG TABLET PO SCH (09:40)
[2016-06-07] MEDS: clonazePAM 0.5 MG TABLET PO SCH (09:40)
[2016-06-07] MEDS: OMEGA 3 ACID ETHYL ESTERS 1 GM CAPSULE PO SCH (09:40)
[2016-06-07] MEDS: TAMSULOSIN 0.4 MG CAPSULE PO SCH (09:41)
[2016-06-07] MEDS: DULoxetine 30 MG CAPSULE PO SCH (09:41)
[2016-06-07] MEDS: FUROSEMIDE 20 MG TABLET PO SCH (09:41)
[2016-06-07] MEDS: CARVEDILOL 6.25 MG TABLET PO SCH (09:42)
[2016-06-07] MEDS: MAGNESIUM OXIDE 400 MG TABLET PO SCH (09:42)
[2016-06-07] MEDS: PANTOPRAZOLE 20 MG TABLET PO SCH (09:42)
[2016-06-07] MEDS: ASPIRIN CHEW 81 MG TABLET PO SCH (09:42)
[2016-06-07] MEDS: NIACIN 500 MG TABLET PO SCH (10:08)
[2016-06-07 10:32] LABS: INR 2.8
[2016-06-07 10:40] LABS: PT Patient Result 31.8 SECS
--- NOTE | 2016-06-07 12:15 | Discharge Summary ---
Hospital Course - Hospital Course Hospital Course: Mr. Donovan is a 66 year old male with hypertension, coronary artery disease, video games mechanic aortic valve on anticoagulation, reported 1 week of worsening right lower extremity edema and pain in the inner right thigh. The redness and pain extended to the groin over the last several days. He reported a fever "on and off," over the weekend up to 101. Additionally he woke up and stated it looked like his right elbow had a "golf ball attached to it." He describes a swelling is very tender painful and warm. The swelling has decreased markedly however he still has significant pain on palpation and restricted range of motion with flexion and extension of the elbow. He rates it a 7 out of 10 at worst, relieved with pain medication. He denies nausea and vomiting, denies chest pain , shortness of breath. His symptoms are constant and progressively worsening. 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 He was started on teflor. Orthopedics was consulted. A small amount of fluid was aspirated from his right elbow. Body fluid cultures grew staphlococccus aureus. His right knee and elbow are now much improved with decreased pain, erythema and warmth. He has now reached maximum benefit of inpatient stay and will be discharged home. He will complete his antibiotic course with keflex. - Time spent with patient Time with patient DS: Less than 30 minutes Diagnosis - Discharge Diagnosis (1) Cellulitis Status: Resolved (2) Cellulitis of right elbow Status: Resolved (3) Cellulitis of right lower extremity Status: Resolved (4) History of mechanical aortic valve replacement Status: Chronic (5) Chronic anticoagulation Status: Chronic Specialty Discharge - Follow Up or Referrals Follow up with: Rishi Adkins MD [Physician] - 2 Weeks Discharge Plan - Discharge Data Condition at Discharge: Stable Discharge Diet: advance to your usual diet Activity: resume usual activities as tolerated Hygiene: no restrictions Weight Bearing at Discharge: weight bear as tolerated Driving: no restrictions Contact your physician if you experience:: fever over 101, Redness or swelling - Discharge Medications New cephALEXin [Keflex] 500 mg PO Q12HR #14 capsule Continue Tizanidine HCl [Zanaflex] 4 mg PO BEDTIME Celecoxib [Celebrex] 200 mg PO DAILY Tamsulosin [Flomax] 0.4 mg PO DAILY Magnesium Chloride [Slow Mag] 64 mg PO DAILY Montelukast Tab [Singulair Tab] 10 mg PO BEDTIME Furosemide Tab [Lasix Tab] 20 mg PO DAILY Carvedilol [Coreg] 6.25 mg PO BID Pramipexole Di-HCl [Mirapex ER] 0.375 mg PO BEDTIME Pantoprazole Sodium 20 mg PO DAILY Lovastatin 40 mg PO BEDTIME clonazePAM [Clonazepam] 0.5 mg PO BID Aspirin [Children's Aspirin] 81 mg PO DAILY HYDROcodone/ACETAMIN 10-325 [[place] 10-325] 1 tablet PO Q4H PRN PRN Reason: Pain Duloxetine HCl [Cymbalta] 60 mg PO DAILY Niacin [Slo-Niacin] 500 mg PO DAILY Lisinopril 2.5 mg PO DAILY Magnesium Oxide [Magnesium] 400 mg PO DAILY Dafter-3 Fatty Acids [Fish Oil] 300 mg PO DAILY Warfarin Sodium 3 mg PO MOWEFRSA Warfarin Sodium 5 mg PO MOWEFRSA Warfarin [Coumadin] 5 mg PO [facility] Multivit-Min/FA/Lycopen/Lutein [Centrum Silver Tablet] 1 each PO DAILY Biotin/Keratin [Biotin Plus Keratin Tablet] 1 each PO DAILY Nitroglycerin Sl Tab [Nitrostat] 0.4 mg SL Q5M PRN PRN Reason: Chest Pain - Follow Up or Referral Follow Up: Rishi Adkins MD [Physician] - 2 Weeks - Forms/Instructions Instructions: Cellulitis (ED) Exam - Constitutional Vitals: Period Temp Pulse Resp BP Sys/[place] Pulse Ox Last 24 Hr 96.9 F-98.6 F 62-71 16-20 131-149/62-74 94-97 General appearance: over weight - Head Head exam: Present: normocephalic, atraumatic - Eye Eye exam: Present: EOMI Pupils: Present: JL - ENT ENT exam: Present: normal exam - Neck Neck exam: Present: normal inspection - Respiratory Respiratory exam: Present: clear to auscultation bilaterally. Absent: rhonchi, wheezes - Cardiovascular Cardiovascular exam: Present: regular rate and rhythm - GI/Abdominal GI/Abdominal exam: Present: normal bowel sounds - Extremities Exam Extremities exam: Present: normal inspection - Back Exam Back exam: Present: normal inspection - Neurological Exam Neurological exam: Present: alert, oriented X3 - Psychiatric Psychiatric exam: Present: normal affect, normal mood - Skin Skin exam: Present: warm, intact Discharge Results Labs on day of discharge: Labs from last 24 hours 06/07/16 06/07/16 09:52 03:58 WBC 6.7 RBC 3.53 L Hgb 10.4 L Hct 32.4 L MCV 91.8 MCH 30 MCHC 32.1 RDW 12.5 Plt Count 143 MPV 10.6 Neut % (Auto) 70.0 Lymph % (Auto) 17.3 L [place] % (Auto) 8.2 Eos % (Auto) 3.6 Baso % (Auto) 0.3 Neut # (Auto) 4.7 Lymph # (Auto) 1.2 L [place] # (Auto) 0.6 Eos # (Auto) 0.2 Baso # (Auto) 0.0 Immature Gran % 0.6 Nucleated RBC % 0.0 Immature Gran # 0.04 Nucleated RBCs # 0.00 INR 2.8 PT Patient/Control Mix 31.8 DS: Provider Date of admission: 06/02/16 23:33 Primary care physician: Brian Mccall Attending physician on admission: Perla Petersen MD Discharging clinician: Perla Petersen MD
== END 2016-06-07 14:36 | disposition home or self-care (01) | DRG 603 ==
LOC: N.ED 19:48 → N.EDINP 23:33 → N.TELEN 06-03 00:06
PROVIDERS: ADMIT Internal Medicine; ATTEND Internal Medicine